=== PATIENT | male | born 2000 | race Caucasian/White ===

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

== ENCOUNTER 2022-02-05 10:48 | Outpatient (CLI) | payer MEDICAID | END 2022-02-05 10:49 | disposition critical access hospital (66) | LOC: EMS 10:48 | DX: R56.9 Unspecified convulsions (principal); R45.6 Violent behavior; Z78.1 Physical restraint status | CPT/HCPCS: A0425; A0427; A0999 ==

== ENCOUNTER 2022-05-30 13:03 | Emergency (ER) | payer MEDICAID ==
--- NOTE | 2022-05-30 13:49 | ED Physician Documentation ---
PD HPI URI - Stated complaint Stated Complaint: CHILLS,CHEST TIGHT - Chief complaint Chief Complaint: General - History obtained from History obtained from: Patient, Friend - History of Present Illness Timing - onset: How many hours ago (onset this morning of aches, chills, nausea, and shakiness. vomiting several times. History of seizures and did vomiting after taking morning meds. friend talked him into coming to ER.), Today Timing duration: Hours Timing details: Abrupt onset, Still present Associated symptoms: Fever (subjective.), Chills, Dyspnea, NVD. No: Nasal congestion, Dry cough Contributing factors: No: Sick contact, Immunocompromised Improves by: Other (felt worse with attempted pO intake of food or fluids.) Similar symptoms before: No diagnosis (has had flu like illness a few times this winter.) Recently seen: Not recently seen Review of Systems Constitutional: reports: Fever, Chills, Myalgias Nose: denies: Rhinorrhea / runny nose, Congestion Throat: denies: Sore throat Respiratory: denies: Cough GI: reports: Nausea, Vomiting. denies: Abdominal Pain, Diarrhea Neurologic: reports: Altered mental status (sleepy and tired, per friend.) PD PAST MEDICAL HISTORY - Past Medical History Cardiovascular: None Respiratory: None Neuro: None, Seizure disorder, Other Endocrine/Autoimmune: None GI: None : None HEENT: None Psych: None Musculoskeletal: None - Past Surgical History Past Surgical History: No - Present Medications Home Medications: Ambulatory Orders Medication Instructions Recorded Confirmed Levetiracetam [Keppra] 500 mg PO BID #60 tablet 08/23/21 05/30/22 Famotidine [Pepcid] 20 mg PO DAILY #20 tablet 05/30/22 LORazepam [Ativan] 1 mg PO BID PRN #12 tablet 05/30/22 Ondansetron Odt [Zofran] 4 mg TL Q6H PRN #10 tablet 05/30/22 - Allergies Allergies/Adverse Reactions: Allergies Allergy/AdvReac Type Severity Reaction Status Date / Time No Known Drug Allergies Allergy Verified 05/30/22 13:34 - Social History Does the pt smoke?: No Smoking Status: Never smoker Does the pt drink ETOH?: No Does the pt have substance abuse?: No - Immunizations Immunizations are current?: Yes - POLST Patient has POLST: No PD ED PE NORMAL - Vitals Vital signs reviewed: Yes - General General: Alert and oriented X 3, Well developed/nourished, Other (somewhat sleepy but answers questions okay. lying down face down on cart. ) - Neck Neck: Supple, no meningeal sign, No adenopathy - Cardiac Cardiac: RRR, No murmur - Respiratory Respiratory: Clear bilaterally - Abdomen Abdomen: Soft, Other (general mild tnederness and guarding but no percussion tenderness. ) - Derm Derm: Warm and dry. No: Normal color (somewhat pale) - Extremities Extremities: Normal ROM s pain - Neuro Neuro: Alert and oriented X 3, No motor deficit, Normal speech Results - Vitals Vitals: Vital Signs - 24 hr 05/30/22 05/30/22 13:32 15:59 Temperature 36.8 C Heart Rate 55 L 50 L Respiratory 18 16 Rate Blood Pressure 136/91 H 155/99 H O2 Saturation 99 100 Oxygen O2 Source Room air - Labs Labs: Laboratory Tests 05/30/22 05/30/22 05/30/22 14:26 14:26 14:40 WBC 10.7 RBC 5.40 Hgb 15.2 Hct 43.7 MCV 80.9 MCH 28.1 MCHC 34.8 RDW 12.3 Plt Count 203 MPV 11.5 H Neut # (Auto) 9.1 H Lymph # (Auto) 0.9 L [place] # (Auto) 0.6 Eos # (Auto) 0.0 Baso # (Auto) 0.0 Absolute Nucleated RBC 0.00 Nucleated RBC % 0.0 Sodium 141 Potassium 3.7 Chloride 107 Carbon Dioxide 21 Anion Gap 13.0 BUN 19 Creatinine 0.7 Estimated GFR (MDRD) 144 Glucose 122 H Calcium 10.2 Magnesium 2.0 Total Bilirubin 1.0 AST 15 ALT 16 Alkaline Phosphatase 67 Total Protein 8.0 Albumin 4.9 Globulin 3.1 Albumin/Globulin Ratio 1.6 Lipase 23 Nasal Adenovirus (PCR) NOT DETECTED Nasal B. parapertussis DNA (PCR) NOT DETECTED Nasal Coronavir 229E PCR NOT DETECTED Nasal Coronavir HKU1 PCR NOT DETECTED Nasal Coronavir NL63 PCR NOT DETECTED Nasal Coronavir OC43 PCR NOT DETECTED Nasal Enterovir/Rhinovir PCR NOT DETECTED Nasal Influenza B PCR NOT DETECTED Nasal Influenza A PCR NOT DETECTED Nasal Parainfluen 1 PCR NOT DETECTED Nasal Parainfluen 2 PCR NOT DETECTED Nasal Parainfluen 3 PCR NOT DETECTED Nasal Parainfluen 4 PCR NOT DETECTED Nasal RSV (PCR) NOT DETECTED Nasal B.pertussis DNA PCR NOT DETECTED Nasal C.pneumoniae (PCR) NOT DETECTED Immanuel Human Metapneumo PCR NOT DETECTED Nasal M.pneumoniae (PCR) NOT DETECTED Nasal SARS-CoV-2 (PCR) NOT DETECTED PD Medical Decision Making - ED course Complexity details: re-evaluated patient (the patient changed his mind about IV/meds and did not want labs done. He is seeming more anxious but still doherent. He wants to go home. Consideration of substance use as his symptoms would also fit for meth use/withdrawal and more fit his affect. ), considered differential (his friend is with him. gave info of some of the patient symptoms this morning. The patient sounds like a viral ge. No focal abd tenderness. can give labs/iv/fluids/ meds. ), d/w patient Departure - Departure Disposition: 01 Home, Self Care Clinical Impression: Nausea and vomiting, Anxiety, Seizure disorder Condition: Stable Record reviewed to determine appropriate education?: Yes Instructions: ED Nausea Vomiting Prescriptions: LORazepam [Ativan] 1 mg PO BID PRN #12 tablet PRN Reason: Anxiety Famotidine [Pepcid] 20 mg PO DAILY #20 tablet Ondansetron Odt [Zofran] 4 mg TL Q6H PRN #10 tablet PRN Reason: Nausea / Vomiting Comments: I understand that you would rather not have the IV fluids and medications. We will try to help with your nausea using oral dissolving tablet of ondansetron/Zyprexa. Small frequent fluids and bland food initially and progress as tolerated. Use Ativan/lorazepam 1 mg twice daily if needed for anxiety in the short-term. Continue your other usual medications. With the vomiting you have had, no doubt your stomach will be irritated and so I would suggest some acid reducing medicine such as famotidine twice daily for a few days and then once daily for a couple weeks after that. Add antacid such as Maalox or Mylanta if needed. Tylenol if needed for pains. Return to the ER if persistent or recurrent symptoms or other problems. I sent your prescriptions to [facility] pharmacy in [place]. Discharge Date/Time: 05/30/22 15:59
[2022-05-30] MEDS ORDERED: KETOROLAC 15 MG/ML VIAL IVP STA (14:16)
[2022-05-30] MEDS ORDERED: ONDANSETRON 4 MG/2 ML VIAL IVP STA (14:16)
[2022-05-30] MEDS ORDERED: SODIUM CHLORIDE 0.9% 1,000 ML IV STA (14:16)
[2022-05-30] MEDS ORDERED: MAG HYDROX/AL HYDROX/SIMETH 30 ML UDC PO STA (14:18)
[2022-05-30] MEDS ORDERED: FAMOTIDINE 20 MG/2 ML VIAL IVP STA (14:18)
[2022-05-30 14:34] LABS: BASOPHILS % (AUTO) 0.3 %; EOSINOPHILS % (AUTO) 0.1 %; HCT - HEMATOCRIT 43.7 % (42.0-52.0); HGB - HEMOGLOBIN 15.2 g/dL (14.0-18.0); LYMPHOCYTES # (AUTO) 0.9 10^3/uL (1.5-3.5); LYMPHOCYTES % (AUTO) 8.7 %; MEAN CORPUSCULAR HEMOGLOBIN 28.1 pg (27.0-31.0); MEAN CORPUSCULAR HGB CONC 34.8 g/dL (32.0-36.0); MEAN CORPUSCULAR VOLUME 80.9 fL (80.0-94.0); MEAN PLATELET VOLUME 11.5 fL (7.4-11.4); MONOCYTES # (AUTO) 0.6 10^3/uL (0.0-1.0); MONOCYTES % (AUTO) 5.6 %; NEUTROPHILS # (AUTO) 9.1 10^3/uL (1.5-6.6); NEUTROPHILS % (AUTO) 84.7 %; PLT - PLATELET COUNT 203 10^3/uL (130-450); RED CELL DISTRIBUTION WIDTH 12.3 % (12.0-15.0); WHITE BLOOD COUNT 10.7 x10^3/uL (4.8-10.8)
[2022-05-30 14:44] LABS: ALBUMIN 4.9 g/dL (3.2-5.5); ALBUMIN/GLOBULIN RATIO 1.6 (1.0-2.2); CALCIUM 10.2 mg/dL (8.5-10.3); CREATININE 0.7 mg/dL (0.6-1.2); POTASSIUM 3.7 mmol/L (3.5-5.0)
[2022-05-30] MEDS ORDERED: ONDANSETRON ODT 4 MG TABLET TL STA (14:48)
[2022-05-30] MEDS ORDERED: FAMOTIDINE 20 MG TABLET PO STA (14:48)
[2022-05-30] MEDS ORDERED: LORazepam 1 MG TABLET PO STA (14:48)
[2022-05-30 15:59] VITALS: BP 155/99
[2022-05-30 16:36] LABS: B. PARAPERTUSSIS- RESP PCR PAN NOT DETECTED; B. PERTUSSIS- RESP PCR PANEL NOT DETECTED; C. PNEUMONIAE- RESP PCR PANEL NOT DETECTED; CORONAVIRUS 229E-RESP PCR NOT DETECTED; CORONAVIRUS HKU1-RESP PCR NOT DETECTED; CORONAVIRUS NL63-RESP PCR NOT DETECTED; CORONAVIRUS OC43-RESP PCR NOT DETECTED; HUMAN METAPNEUMOVIRUS NOT DETECTED; INFLUENZA A- RESP PCR PANEL NOT DETECTED; INFLUENZA B - RESP PCR PANEL NOT DETECTED; M. PNEUMONIAE- RESP PCR PANEL NOT DETECTED; PARAINFLUENZA VIRUS 1 NOT DETECTED; PARAINFLUENZA VIRUS 2 NOT DETECTED; PARAINFLUENZA VIRUS 3 NOT DETECTED; PARAINFLUENZA VIRUS 4 NOT DETECTED; RHINOVIRUS/ENTEROVIRUS NOT DETECTED; RSV- RESP PCR PANEL NOT DETECTED; SARS-CoV-2 -RESP PCR PANEL NOT DETECTED
== END 2022-05-30 15:59 | disposition home or self-care (01) ==
LOC: ED 13:03
DX: R11.2 Nausea with vomiting, unspecified (principal); F41.9 Anxiety disorder, unspecified; G40.909 Epilepsy, unspecified, not intractable, without status epilepticus; Z20.822 Contact with and (suspected) exposure to COVID-19
CPT/HCPCS: 36415; 80053; 83690; 83735; 85025; 87633; 99283; 99284; A9270; J8499; Q0162

== ENCOUNTER 2022-06-03 14:19 | Emergency (ER) | payer MEDICAID ==
[2022-06-03 14:38] VITALS: BP 129/79
[2022-06-03] MEDS ORDERED: LIDOCAINE 1%-EPI 1:100000 10 ML MDV SUBQ STA ×2 (15:33→15:38)
[2022-06-03] MEDS ORDERED: LIDOCAINE 1%-EPI 1:100000 20 ML MDV SUBQ STA (15:48)
[2022-06-03] MEDS ORDERED: BACITRACIN ZINC OINT 1 PACKET TOP STA (16:24)
--- NOTE | 2022-06-12 00:30 | ED Physician Documentation ---
History of Present Illness - Stated complaint Stated Complaint: LT HAND LAC - Chief complaint Chief Complaint: Laceration - Additonal information Additional information: Patient is a 22-year-old male present to the emergency department with left hand laceration. Cut hand while using screwdriver prior to arrival [id number]. Reports physicians up-to-date. Rinsed injury and applied pressure prior to arrival. Denies any blood thinning in medication. Review of Systems Constitutional: denies: Fever Eyes: denies: Loss of vision Ears: denies: Loss of hearing Nose: denies: Rhinorrhea / runny nose Throat: denies: Dental pain / toothache Cardiac: denies: Chest pain / pressure Respiratory: denies: Dyspnea GI: denies: Abdominal Pain : denies: Dysuria PD PAST MEDICAL HISTORY - Past Medical History Cardiovascular: None Respiratory: None Neuro: None, Seizure disorder, Other Endocrine/Autoimmune: None GI: None : None HEENT: None Psych: None Musculoskeletal: None - Past Surgical History Past Surgical History: No - Present Medications Home Medications: Ambulatory Orders Medication Instructions Recorded Confirmed Levetiracetam [Keppra] 500 mg PO BID #60 tablet 08/23/21 05/30/22 Famotidine [Pepcid] 20 mg PO DAILY #20 tablet 05/30/22 LORazepam [Ativan] 1 mg PO BID PRN #12 tablet 05/30/22 Ondansetron Odt [Zofran] 4 mg TL Q6H PRN #10 tablet 05/30/22 - Allergies Allergies/Adverse Reactions: Allergies Allergy/AdvReac Type Severity Reaction Status Date / Time No Known Drug Allergies Allergy Verified 06/03/22 14:38 - Social History Does the pt smoke?: No Smoking Status: Never smoker Does the pt drink ETOH?: No Does the pt have substance abuse?: No - Immunizations Immunizations are current?: Yes - POLST Patient has POLST: No PD ED PE NORMAL - General General: Alert and oriented X 3 - HEENT HEENT: Atraumatic - Respiratory Respiratory: No respiratory distress - Extremities Extremities: No deformity, Other (3 cm laceration at base of left thumb. Full and normal range of motion. Normal two-point discrimination. Normal capillary refill.) Results - Vitals Vitals: Oxygen O2 Source Room air Procedures - Laceration (location) Hand left Length in cm: 3 Wound type: Linear Neurovascular status: Sensory intact Tendon involvement: Tendon intact Anesthesia: Lidocaine 1% with epi Wound preparation: Chlorhexadine Skin layer closure: Nylon, Sutures - enter # (4) Other: Patient tolerated well PD Medical Decision Making - ED course Complexity details: d/w patient ED course: Patient 22-year-old male presenting with left hand laceration. No indications of neurovascular or tendon compromise on exam. He reported his tetanus being up-to-date and within the last 5 years. Wound was cleaned and repaired as outlined in procedure note above. He was given wound care and follow-up instructions prior to discharge. Final diagnosis: Acute left hand laceration. Departure - Departure Disposition: 01 Home, Self Care Clinical Impression: Laceration Instructions: ED Laceration Scalp Stitch Or Stap Comments: Thank you for allowing [facility] care [facility]. Today in the emergency department you received 6 stitches to the laceration in your left hand. These will need to be removed in 7 to 10 days. I recommend daily dressing changes and twice daily application of a topical antibiotic ointment. If it anytime you develop signs or symptoms concerning for infection please return to the emergency department. Discharge Date/Time: 06/03/22 16:41
== END 2022-06-03 16:41 | disposition home or self-care (01) ==
LOC: ED 14:19
DX: S61.012A Laceration without foreign body of left thumb without damage to nail, initial encounter (principal); W27.0XXA Contact with workbench tool, initial encounter
CPT/HCPCS: 12002; 99281; A9270

== ENCOUNTER 2022-07-10 04:07 | Outpatient (CLI) | payer MEDICAID | END 2022-07-10 04:08 | disposition critical access hospital (66) | LOC: EMS 04:07 | DX: R56.9 Unspecified convulsions (principal); S01.81XA Laceration without foreign body of other part of head, initial encounter; W18.39XA Other fall on same level, initial encounter; Y92.512 Supermarket, store or market as the place of occurrence of the external cause | CPT/HCPCS: A0425; A0429; A0999 ==

== ENCOUNTER 2022-07-10 04:30 | Emergency (ER) | payer MEDICAID ==
--- NOTE | 2022-07-10 04:28 | ED Physician Documentation ---
PD HPI HEAD INJURY - Stated complaint Stated Complaint: SZ, HEAD LAC - History obtained from History obtained from: Patient, EMS - Additional information Additional information: HPI is from patient as well as from EMS (patient is postictal and thus can only partially contribute to the HPI). Patient was at work prior to arrival when he had a seizure with loss of consciousness and fell to ground, striking his head on the floor which caused a posterior scalp laceration. EMS says that coworkers that were onsite reported the seizure lasted approximately 2 minutes. EMS arrived to find patient awake but postictal which manifest as confusion and agitation. His mental status has improved on route to the emergency department but he remains terse and dismissive on arrival and initial HPI (for example, he insists he does not have scalp laceration and when I tell him that I and clearly visualizing a deep scalp laceration, he then says he does not want it repaired because "it is not bleeding"; with a gloved finger, I dabbed at the wound, and showed him the blood that was on the glove, and then he reluctantly allows me to repair the la ceration). Fingerstick blood sugar by EMS is 149. EMS noted a blood pressure of 137/71 and pulse rate of 102. Patient has a known seizure disorder for which she takes Keppra. Review of Systems Skin: reports: Laceration (s) Musculoskeletal: reports: Reviewed and negative Neurologic: reports: Seizure. denies: Generalized weakness, Headache PD PAST MEDICAL HISTORY - Past Medical History Past Medical History: Yes Neuro: Seizure disorder - Present Medications Home Medications: Ambulatory Orders Medication Instructions Recorded Confirmed Levetiracetam [Keppra] 500 mg PO BID #60 tablet 08/23/21 07/10/22 Famotidine [Pepcid] 20 mg PO DAILY #20 tablet 05/30/22 07/10/22 LORazepam [Ativan] 1 mg PO BID PRN #12 tablet 05/30/22 07/10/22 Ondansetron Odt [Zofran] 4 mg TL Q6H PRN #10 tablet 05/30/22 07/10/22 - Allergies Allergies/Adverse Reactions: Allergies Allergy/AdvReac Type Severity Reaction Status Date / Time No Known Drug Allergies Allergy Verified 07/10/22 04:44 PD ED PE NORMAL - Vitals Vital signs reviewed: Yes - General General: Alert and oriented X 3, No acute distress, Well developed/nourished - HEENT HEENT: PERRL, EOMI, Other (no tongue bite/echmosis/abrasion) - Neck Neck: No bony TTP - Cardiac Cardiac: RRR, No murmur - Respiratory Respiratory: No respiratory distress, Clear bilaterally PD ED PE EXPANDED - HEENT HEENT: Other (no bony step-off nor bony tenderness) HEENT Visual: 1 - laceration (3 cm length with visualized subcutaneous adipose tissue) Results - Vitals Vitals: Vital Signs - 24 hr 07/10/22 07/10/22 07/10/22 04:32 04:57 05:15 Temperature 35.7 C L Heart Rate 94 79 96 Respiratory 18 12 17 Rate Blood Pressure 135/79 H 135/79 H 126/75 O2 Saturation 96 98 99 Oxygen O2 Source Room air Procedures - Laceration (location) Scalp Posterior Length in cm: 3 Wound type: Linear, Into subcut fat, Clean Neurovascular status: Sensory intact, Motor intact, Vascular intact Anesthesia: Lidocaine 1% Wound preparation: Hibiclens, Irrigated copiously NS Skin layer closure: [place] Other: Patient tolerated well, No complications, Neurovascular intact, Tetanus UTD PD Medical Decision Making - ED course Complexity details: reviewed old records, considered differential, d/w patient ED course: Early in ED stay, patient is terse, dismissive. He initially wants to leave without being evaluated, let alone having the scalp laceration repaired. His spouse then arrives and he seems to improve in mentation and willingness to coop erate, and steadily improved in these aspects very rapidly thereafter. Based on this, and reviewing some of his previous ED visits after seizure, it seems very likely that his indifference he exhibited when he first arrived is due to postictal state rather than national account representative of his underlying attitude. As another example, when patient first arrived, he told me he stopped taking his Keppra weeks ago; late in his ED stay, although overall he was here less than an hour, he tells me he only missed last night's dose. He is able to tell me exactly what his dosing and scheduling are. Since he missed his dose last night, which is 1000 mg (which she takes twice daily), he is given a dose of the 1000 mg Keppra prior to discharge. Scalp laceration was repaired as noted above. He is instructed to follow-up with his primary care provider, or else a walk-in clinic, urgent care center, or, if need be, return to emergency department in 7 to 10 days for staple removal. Patient is polite, cooperative, and even apologetic prior to discharge. Departure - Departure Disposition: 01 Home, Self Care Clinical Impression: Seizure disorder, Scalp laceration, Seizure Condition: Good Instructions: ED Laceration Scalp Stitch Or Stap Comments: You apparently had a seizure this morning while at work; this is per the medic report, with their information gathered from coworkers who were on scene. Furthermore, it appears you have struck your head on the floor, as you have a deep laceration of the scalp. I have repaired this using chayo, and you need to follow-up for removal of the chayo in 7 to 10 days. You can make an appoi ntment with your primary care provider to have this done; other options include a walk-in clinic, urgent care, or, if need be, you can return to the emergency department. You were given 1000 mg of Keppra orally in the emergency department prior to discharge. You can consider this your morning dose of Keppra, and, thus, you would take your next dose of Keppra as scheduled this evening. Obviously, it is very important to not miss any doses of the seizure medication. Discharge Date/Time: 07/10/22 05:25
[2022-07-10] MEDS ORDERED: lidocaine 1% 20 ML MDV SUBQ ONE (04:44)
[2022-07-10] MEDS ORDERED: BACITRACIN ZINC OINT 1 PACKET TOP STA (05:05)
[2022-07-10] MEDS ORDERED: levETIRAcetam 250 MG TABLET PO STA (05:06)
[2022-07-10 05:16] VITALS: BP 126/75
== END 2022-07-10 05:25 | disposition home or self-care (01) ==
LOC: EDUNIT# → ED 04:30
DX: G40.909 Epilepsy, unspecified, not intractable, without status epilepticus (principal); S01.01XA Laceration without foreign body of scalp, initial encounter; W19.XXXA Unspecified fall, initial encounter
CPT/HCPCS: 12002; 99283; 99284; A9270

== ENCOUNTER 2022-07-17 13:53 | Outpatient (CLI) | payer MEDICAID ==
--- NOTE | 2022-07-17 16:52 | XRAY Report ---
PROCEDURE: Thoracic Spine 3 View INDICATIONS: CONTUSION OF LOWER AND MIDDLE BACK TECHNIQUE: 2 views of the thoracic spine were acquired. COMPARISON: None. FINDINGS: Bones: No fractures or dislocations. No suspicious bony lesions. 12 pairs of ribs are noted, and a ppear intact where visualized. Soft tissues: No paravertebral stripe thickening. IMPRESSION: This is a normal study. Reviewed by: Kingsley Abraham MD on 07/17/2022 3:50 PM AKDT Approved by: Kingsley Abraham MD on 07/17/2022 3:50 PM AKDT Station ID: [id number]
--- NOTE | 2022-07-17 18:08 | XRAY Report ---
PROCEDURE: Lumbar Spine 2 View INDICATIONS: CONTUSION OF LOWER AND MIDDLE BACK TECHNIQUE: 2 views of the lumbar spine were acquired. COMPARISON: None. FINDINGS: Bones: 5 [id number] vertebrae are present. There is normal bony alignment. No vertebral body compression fractures. No suspicious bony lesions. Soft tissues: Overlying bowel gas pattern is normal. No suspicious soft tissue calcifications. IMPRESSION: Normal lumbar spine radiographs Reviewed by: Kingsley Abraham MD on 07/17/2022 5:07 PM DENTON Approved by: Kingsley Abraham MD on 07/17/2022 5:07 PM AKMERLIN Station ID: [id number]
== END 2022-07-17 13:54 | disposition home or self-care (01) ==
LOC: DI 13:53
PROVIDERS: ATTEND Registered Nurse
DX: S30.0XXA Contusion of lower back and pelvis, initial encounter (principal); S20.224A Contusion of middle back wall of thorax, initial encounter; S01.01XA Laceration without foreign body of scalp, initial encounter; S06.0X1A Concussion with loss of consciousness of 30 minutes or less, initial encounter

== ENCOUNTER 2022-09-25 12:21 | Outpatient (CLI) | payer MEDICAID | END 2022-09-25 23:59 | disposition left against medical advice (07) | LOC: EMS 12:21 | DX: R56.9 Unspecified convulsions (principal) ==

== ENCOUNTER 2022-09-25 15:40 | Outpatient (CLI) | payer MEDICAID | END 2022-09-25 23:59 | disposition critical access hospital (66) | LOC: EMS 15:40 | DX: R56.9 Unspecified convulsions (principal); R46.89 Other symptoms and signs involving appearance and behavior; R51.9 Headache, unspecified | CPT/HCPCS: A0425; A0429; A0999 ==

== ENCOUNTER 2022-09-25 15:48 | Emergency (ER) | payer MEDICAID ==
[2022-09-25] MEDS ORDERED: SODIUM CHLORIDE 0.9% 1,000 ML IV STA (16:02)
[2022-09-25 16:06] LABS: BASOPHILS % (AUTO) 0.3 %; EOSINOPHILS % (AUTO) 0.2 %; HCT - HEMATOCRIT 43.4 % (42.0-52.0); HGB - HEMOGLOBIN 14.9 g/dL (14.0-18.0); LYMPHOCYTES % (AUTO) 8.3 %; MEAN CORPUSCULAR HEMOGLOBIN 27.7 pg (27.0-31.0); MEAN CORPUSCULAR HGB CONC 34.3 g/dL (32.0-36.0); MEAN CORPUSCULAR VOLUME 80.7 fL (80.0-94.0); MEAN PLATELET VOLUME 11.3 fL (7.4-11.4); MONOCYTES # (AUTO) 0.4 10^3/uL (0.0-1.0); MONOCYTES % (AUTO) 3.5 %; NEUTROPHILS # (AUTO) 10.5 10^3/uL (1.5-6.6); NEUTROPHILS % (AUTO) 86.8 %; PLT - PLATELET COUNT 195 10^3/uL (130-450); RED BLOOD COUNT 5.38 10^6/uL (4.70-6.10); RED CELL DISTRIBUTION WIDTH 12.6 % (12.0-15.0); WHITE BLOOD COUNT 12.2 x10^3/uL (4.8-10.8)
[2022-09-25 16:18] LABS: ALBUMIN 4.4 g/dL (3.2-5.5); ALBUMIN/GLOBULIN RATIO 1.3 (1.0-2.2); ALKALINE PHOSPHATASE 69 IU/L (42-121); ALT ALANINE AMINOTRANSFERASE 16 IU/L (10-60); AST ASPARTATE AMINOTRANSFERASE 16 IU/L (10-42); BILIRUBIN,TOTAL 0.7 mg/dL (0.2-1.0); BUN - BLOOD UREA NITROGEN 16 mg/dL (6-20); CALCIUM 9.3 mg/dL (8.5-10.3); CARBON DIOXIDE - CO2 25 mmol/L (21-32); CHLORIDE 104 mmol/L (101-111); CREATININE 0.6 mg/dL (0.6-1.2); ETOH - ETHANOL < 5.0 mg/dL; GFR - MDRD 172 (>89); GLUCOSE 106 mg/dL (70-100); LIPASE 21 U/L (22-51); POTASSIUM 3.9 mmol/L (3.5-5.0); SODIUM 137 mmol/L (135-145); TOTAL PROTEIN 7.7 g/dL (6.7-8.2)
[2022-09-25 16:22] LABS: BILIRUBIN,URINE NEGATIVE (NEGATIVE); GLUCOSE, URINE (UA) NEGATIVE (NEGATIVE); KETONES,URINE (UA) NEGATIVE (NEGATIVE); LEUKOCYTE ESTERASE, URINE NEGATIVE (NEGATIVE); NITRITE,URINE NEGATIVE (NEGATIVE); OCCULT BLOOD,URINE NEGATIVE (NEGATIVE); PH,URINE 6.5 PH (5.0-7.5); PROTEIN,URINE NEGATIVE (NEGATIVE); UROBILINOGEN,URINE 0.2 (NORMAL) E.U./dL (NORMAL)
[2022-09-25 16:23] LABS: CLARITY,URINE CLEAR (CLEAR)
[2022-09-25 16:29] LABS: MUDS CUTOFF CONCENTRATIONS CUTOFF CONC BELOW:
[2022-09-25 16:40] LABS: AMPHETAMINE SCREEN,URINE NEGATIVE (NEGATIVE); BARBITURATE SCREEN,UR NEGATIVE (NEGATIVE); BENZODIAZEPINES SCREEN, URINE NEGATIVE (NEGATIVE); COCAINE SCREEN URINE NEGATIVE (NEGATIVE); METHADONE SCREEN, URINE NEGATIVE (NEGATIVE); METHAMPHETAMINES SCREEN, URINE NEGATIVE (NEGATIVE); OPIATE SCREEN, URINE NEGATIVE (NEGATIVE); OXYCODONE SCREEN, URINE NEGATIVE (NEGATIVE); PROPOXYPHENE SCREEN, URINE NEGATIVE (NEGATIVE); THC CANNABINOID SCREEN, URINE POSITIVE (NEGATIVE); TRICYCLIC ANTIDEPRESSANT,URINE NEGATIVE (NEGATIVE)
--- NOTE | 2022-09-25 16:40 | ED Physician Documentation ---
PD HPI SEIZURE - Stated complaint Stated Complaint: SZ - Chief complaint Chief Complaint: Neuro - History obtained from History obtained from: Patient, Family (Girlfriend) - Additional information Additional information: Patient is a 22-year-old male with a history of neurofibromatosis type I and seizure disorder presenting for evaluation of feeling preseizure auras today twice. Per the patient's girlfriend he had an episode this morning around 11:00 where he was staring off, salivating, speaking somewhat aggressively which has occurred previously.She called 9 1 and he was evaluated but refused transport at that time. He then had another episode this afternoon That was similar and thus girlfriend called 911 again. Another episode led to a full seizure. Patient states that he has been compliant with his Keppra dosing without a milligrams twice a day since June. Girlfriend also states that she make sure that he takes his medication. He did have some alcohol on 23 September consisting of a couple of Jell-O shots and 2 beers. Patient also regularly uses cannabis. He denies recent illness. Review of Systems Constitutional: denies: Fever Cardiac: denies: Chest pain / pressure Respiratory: denies: Dyspnea GI: denies: Abdominal Pain Neurologic: denies: Head injury PD PAST MEDICAL HISTORY - Past Medical History Cardiovascular: None Respiratory: None Neuro: Seizure disorder Endocrine/Autoimmune: None GI: None : None HEENT: None Psych: None Musculoskeletal: None - Past Surgical History Past Surgical History: No - Present Medications Home Medications: Ambulatory Orders Medication Instructions Recorded Confirmed Levetiracetam [Keppra] 500 mg PO BID #60 tablet 08/23/21 07/10/22 Famotidine [Pepcid] 20 mg PO DAILY #20 tablet 05/30/22 07/10/22 LORazepam [Ativan] 1 mg PO BID PRN #12 tablet 05/30/22 07/10/22 Ondansetron Odt [Zofran] 4 mg TL Q6H PRN #10 tablet 05/30/22 07/10/22 Levetiracetam [Keppra] 1,250 mg PO BID 30 Days #150 tablet 09/25/22 - Allergies Allergies/Adverse Reactions: Allergies Allergy/AdvReac Type Severity Reaction Status Date / Time No Known Drug Allergies Allergy Verified 07/10/22 04:44 - Social History Does the pt smoke?: No Smoking Status: Never smoker Does the pt drink ETOH?: No Does the pt have substance abuse?: No - Immunizations Immunizations are current?: Yes - POLST Patient has POLST: No PD ED PE NORMAL - General General: Alert and oriented X 3, No acute distress, Well developed/nourished - HEENT HEENT: Atraumatic, PERRL, EOMI, Moist mucous membranes, Pharynx benign - Neck Neck: Supple, no meningeal sign - Cardiac Cardiac: RRR, No murmur - Respiratory Respiratory: No respiratory distress, Clear bilaterally - Abdomen Abdomen: Normal bowel sounds, Soft, Non tender, Non distended - Derm Derm: Warm and dry - Neuro Neuro: Alert and oriented X 3, button sawyer 2-12 intact, No motor deficit, No sensory deficit, Normal speech Results - Vitals Vitals: Vital Signs - 24 hr 09/25/22 09/25/22 09/25/22 15:47 16:45 17:53 Temperature 37.4 C 37.4 C Heart Rate 85 73 93 Respiratory 18 10 L 24 Rate Blood Pressure 133/81 H 118/74 128/81 H O2 Saturation 99 96 100 Oxygen O2 Source Room air - EKG (time done) 1600 EKG releavant findings:: EKG personally interpreted by author of this note. Relevant findings are: Rate 76, normal sinus rhythm, no STEMI, QTc 390 Rate: Rate (enter#) (76) Rhythm: NSR Intervals: No: Prolonged QT Ischemia: No: ST elevation c/w ischemia - Labs Labs: Laboratory Tests 09/25/22 09/25/22 09/25/22 15:59 15:59 16:10 WBC 12.2 H RBC 5.38 Hgb 14.9 Hct 43.4 MCV 80.7 MCH 27.7 MCHC 34.3 RDW 12.6 Plt Count 195 MPV 11.3 Neut # (Auto) 10.5 H Lymph # (Auto) 1.0 L [place] # (Auto) 0.4 Eos # (Auto) 0.0 Baso # (Auto) 0.0 Absolute Nucleated RBC 0.00 Nucleated RBC % 0.0 Sodium 137 Potassium 3.9 Chloride 104 Carbon Dioxide 25 Anion Gap 8.0 BUN 16 Creatinine 0.6 Estimated GFR (MDRD) 172 Glucose 106 H Calcium 9.3 Total Bilirubin 0.7 AST 16 ALT 16 Alkaline Phosphatase 69 Total Protein 7.7 Albumin 4.4 Globulin 3.3 Albumin/Globulin Ratio 1.3 Lipase 21 L Urine Color YELLOW Urine Clarity CLEAR Urine pH 6.5 Ur Specific [place] 1.025 Urine Protein NEGATIVE Urine Glucose (UA) NEGATIVE Urine Ketones NEGATIVE Urine Occult Blood NEGATIVE Urine Nitrite NEGATIVE Urine Bilirubin NEGATIVE Urine Urobilinogen 0.2 (NORMAL) Ur Leukocyte Esterase NEGATIVE Ur Microscopic Review NOT INDICATED Urine Culture Comments NOT INDICATED Urine Opiates Screen Ur Oxycodone Screen Urine Methadone Screen Ur Propoxyphene Screen Ur Barbiturates Screen Ur Tricyclics Screen Ur Phencyclidine Scrn Ur Amphetamine Screen U Methamphetamines Scrn U Benzodiazepines Scrn Urine Cocaine Screen U Cannabinoids Screen Ethyl Alcohol < 5.0 09/25/22 16:10 WBC RBC Hgb Hct MCV MCH MCHC RDW Plt Count MPV Neut # (Auto) Lymph # (Auto) [place] # (Auto) Eos # (Auto) Baso # (Auto) Absolute Nucleated RBC Nucleated RBC % Sodium Potassium Chloride Carbon Dioxide Anion Gap BUN Creatinine Estimated GFR (MDRD) Glucose Calcium Total Bilirubin AST ALT Alkaline Phosphatase Total Protein Albumin Globulin Albumin/Globulin Ratio Lipase Urine Color Urine Clarity Urine pH Ur Specific [place] Urine Protein Urine Glucose (UA) Urine Ketones Urine Occult Blood Urine Nitrite Urine Bilirubin Urine Urobilinogen Ur Leukocyte Esterase Ur Microscopic Review Urine Culture Comments Urine Opiates Screen NEGATIVE Ur Oxycodone Screen NEGATIVE Urine Methadone Screen NEGATIVE Ur Propoxyphene Screen NEGATIVE Ur Barbiturates Screen NEGATIVE Ur Tricyclics Screen NEGATIVE Ur Phencyclidine Scrn NEGATIVE Ur Amphetamine Screen NEGATIVE U Methamphetamines Scrn NEGATIVE U Benzodiazepines Scrn NEGATIVE Urine Cocaine Screen NEGATIVE U Cannabinoids Screen POSITIVE H Ethyl Alcohol PD Medical Decision Making - ED course Complexity details: reviewed results, re-evaluated patient, d/w patient, d/w family ED course: 1640 - D/W Carla (Application Designer TOWER SUPERVISOR, Neuro at [facility]) - She recommends that we increase the patient's Keppra dosing to 1250 twice daily. She also recommends that we give him an additional 1000 mg orally right now.She says that they have been trying to reach the patient but his number has not been working. I did give her the phone number for his girlfriend which the patient gave me permission to do as his phone is currently not in service. She also gave me their office number so that the patient has a way of reaching out to them. Patient is a 22-year-old with a known seizure disorder presenting for evaluation of feeling his auras prior to a usual seizure episode. However he has not had a tonic-clonic seizure today like he usually does after these auras. On arrival he is cooperative with a normal neuro exam. No head injury. Vitals are stable. CBC, chemistries, urine analysis were reviewed without Significant findings. Patient does report using cannabis which shows up on his UDS but otherwise is negative.I did consult with [facility] neurology office.Plan to increase his Keppra dose. Initially we are planning on giving his Keppra dose as a p.o. but he started feeling nauseous and feeling like another seizure may come on so we gave it to him IV. Patient again did not have any seizure episodes witnessed here. He tolerated the Keppra dose and remained at his baseline.His girlfriend is with him. I did review plan of care for increased Keppra and need for close follow-up with both of them. He is counseled on concerning symptoms to return for. Departure - Departure Disposition: 01 Home, Self Care Clinical Impression: Seizure disorder Condition: Stable Instructions: ED Seizure Recurrent Follow-Up: Carla Oropeza ARNP [Physician No Access] - Within 3 Days () Prescriptions: Levetiracetam [Keppra] 1,250 mg PO BID 30 Days #150 tablet Comments: We have evaluated you for symptoms related to your seizures. I have spoken to the neurology clinic at [facility] and They are recommending that we increase your Keppra dosing to 1250 mg twice a day. This will be 2-1/2 tablets in the morning and 2-1/2 tablets in the evening. Please make sure you take your medications as prescribed. I am sending a new prescription for 30-day supply to [facility] in [place]. You also need to have close follow-up with the neurology clinic office. Their phone number is [phone] or operate machinery until you have been cleared by your neurologist. Discharge Date/Time: 09/25/22 17:53
[2022-09-25] MEDS ORDERED: levETIRAcetam 500 MG/5 ML UDC PO STA (16:47)
[2022-09-25] MEDS ORDERED: levETIRAcetam INJ 1,000 MG in SODIUM CHLORIDE 0.9% 100ML 100 ML IV STA (16:54)
[2022-09-25] MEDS ORDERED: ONDANSETRON 4 MG/2 ML VIAL IVP STA (16:54)
[2022-09-25 17:58] VITALS: BP 128/81
== END 2022-09-25 17:53 | disposition home or self-care (01) ==
LOC: ED 15:48
DX: G40.909 Epilepsy, unspecified, not intractable, without status epilepticus (principal)
CPT/HCPCS: 36415; 80053; 80306; 80320; 81001; 81003; 83690; 85025; 87086; 93005; 96365; 96375; 99284

== ENCOUNTER 2022-10-26 19:48 | Emergency (ER) | payer MEDICAID ==
[2022-10-26 19:58] VITALS: BP 133/70
--- NOTE | 2022-10-26 20:21 | ED Physician Documentation ---
PD HPI UPPER EXT INJURY - Stated complaint Stated Complaint: RT FINGER LAC - Chief complaint Chief Complaint: Trauma Ext - History obtained from History obtained from: Patient - History of Present Illness Location: Right, Finger Where injury occurred: Home - Additonal information Additional information: Patient accidentally cut his right middle finger with an putting away a pocket knife. He sustained a small cut to the middle finger, no nail damage, no difficulty moving the finger, no change in sensation or range of motion. Tdap up to date. PD PAST MEDICAL HISTORY - Past Medical History Past Medical History: Yes Cardiovascular: None Respiratory: None Neuro: Seizure disorder Endocrine/Autoimmune: None GI: None : None HEENT: None Psych: None Musculoskeletal: None - Past Surgical History Past Surgical History: No - Present Medications Home Medications: Ambulatory Orders Medication Instructions Recorded Confirmed Levetiracetam [Keppra] 500 mg PO BID #60 tablet 08/23/21 07/10/22 Famotidine [Pepcid] 20 mg PO DAILY #20 tablet 05/30/22 07/10/22 LORazepam [Ativan] 1 mg PO BID PRN #12 tablet 05/30/22 07/10/22 Ondansetron Odt [Zofran] 4 mg TL Q6H PRN #10 tablet 05/30/22 07/10/22 Levetiracetam [Keppra] 1,250 mg PO BID 30 Days #150 tablet 09/25/22 - Allergies Allergies/Adverse Reactions: Allergies Allergy/AdvReac Type Severity Reaction Status Date / Time No Known Drug Allergies Allergy Verified 07/10/22 04:44 - Social History Does the pt smoke?: No Smoking Status: Never smoker Does the pt drink ETOH?: No Does the pt have substance abuse?: No - Immunizations Immunizations are current?: Yes - POLST Patient has POLST: No PD ED PE NORMAL - Vitals Vital signs reviewed: Yes - General General: Alert and oriented X 3, No acute distress, Well developed/nourished - Derm Derm: Normal color, Warm and dry, Other (1x0.3 cm lac tip of the rt middle finger) - Extremities Extremities: No deformity, Normal ROM s pain - Neuro Neuro: Alert and oriented X 3 Eye Opening: Spontaneous Motor: Obeys Commands Verbal: Oriented GCS Score: 15 Results - Vitals Vitals: Vital Signs - 24 hr 10/26/22 19:54 Temperature 36.8 C Heart Rate 94 Respiratory 16 Rate Blood Pressure 133/70 H O2 Saturation 98 Oxygen O2 Source Room air Procedures - Laceration (location) Finger right Length in cm: 1 Wound type: Irregular Neurovascular status: Sensory intact, Motor intact, Vascular intact Tendon involvement: Tendon intact Anesthesia: Lidocaine 1% Wound preparation: Hibiclens, Irrigated copiously NS Skin layer closure: Nylon, Size #-0 - enter number (4), Sutures - enter # (3) Other: Patient tolerated well, No complications, Neurovascular intact, Dressing applied, Tetanus UTD PD Medical Decision Making - ED course Complexity details: d/w patient ED course: Patient presented after he cut his right middle finger with a pocket knife as described in HPI. He has a small laceration 6 skin defect of the tip of the finger. As it was bleeding briskly prior to arrival, placed a tourniquet on the base of the finger, remove the dressing that had been previously applied and evaluated injury. It was irrigated thoroughly cleansed with Hibiclens. I did recommend suture closure given the risk of bleeding and patient consented. He was anesthetized locally with 1% plain lidocaine and 3 sutures were placed as described above. Patient tolerated well. Tourniquet was removed. He has normal range of motion and sensation and vascular intact. He was advised to keep wound clean and dry, do not soak, return if any signs of infection, sutures can be removed in 7 to 10 days. Departure - Departure Disposition: 01 Home, Self Care Clinical Impression: Finger laceration Qualifiers: Encounter type: initial encounter Finger: middle finger Damage to nail status: without damage Foreign body presence: without foreign body Laterality: right Qualified Code(s): S61.212A - Laceration without foreign body of right middle finger without damage to nail, initial encounter Condition: Good Instructions: ED Laceration Ext Sutr Stap Tape Comments: We placed 3 stitches. These can be removed in 7 to 10 days you can do this at your primary care office or walk-in clinic. Keep the area clean but otherwise dry, do not soak. Return if there are any signs of infection like redness, swelling, purulent drainage or other new concerns. Forms: PCP List
== END 2022-10-26 20:29 | disposition home or self-care (01) ==
LOC: ED 19:48
DX: S61.212A Laceration without foreign body of right middle finger without damage to nail, initial encounter (principal); W26.0XXA Contact with knife, initial encounter
CPT/HCPCS: 12001; 99281

== ENCOUNTER 2023-07-21 18:53 | Outpatient (CLI) | payer OTHER, MEDICAID | END 2023-07-21 23:59 | disposition critical access hospital (66) | LOC: EMS 18:53 | DX: R07.1 Chest pain on breathing (principal); M54.6 Pain in thoracic spine; R20.0 Anesthesia of skin; V49.50XA Passenger injured in collision with unspecified motor vehicles in traffic accident, initial encounter; Y92.414 Local residential or business street as the place of occurrence of the external cause | CPT/HCPCS: A0425; A0429 ==

== ENCOUNTER 2023-07-21 19:15 | Emergency (ER) | payer MEDICAID ==
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
[2023-07-21 19:33] VITALS: BP 127/67; O2SAT 99
[2023-07-21] MEDS: ONDANSETRON 4 MG/2 ML VIAL IVP STA (19:37)
[2023-07-21] MEDS: HYDROmorphone 1 MG/ML CARPUJECT IVP STA (19:38)
[2023-07-21 19:43] LABS: ALBUMIN 5.3 g/dL (3.2-5.5); ALKALINE PHOSPHATASE 63 IU/L (42-121); ALT ALANINE AMINOTRANSFERASE 14 IU/L (10-60); AST ASPARTATE AMINOTRANSFERASE 17 IU/L (10-42); BILIRUBIN,TOTAL 1.4 mg/dL (0.2-1.0); BUN - BLOOD UREA NITROGEN 16 mg/dL (6-20); CALCIUM 10.5 mg/dL (8.5-10.3); CARBON DIOXIDE - CO2 24 mmol/L (21-32); CHLORIDE 102 mmol/L (101-111); CREATININE 0.9 mg/dL (0.6-1.3); ETOH - ETHANOL < 10.0 mg/dL; GFR - MDRD 107 (>89); GLUCOSE 91 mg/dL (74-104); POTASSIUM 3.8 mmol/L (3.5-4.5); SODIUM 138 mmol/L (135-145); TOTAL PROTEIN 7.9 g/dL (6.4-8.9)
[2023-07-21 19:44] LABS: BASOPHILS # (AUTO) 0.1 10^3/uL (0.0-0.1); BASOPHILS % (AUTO) 0.6 %; EOSINOPHILS # (AUTO) 0.1 10^3/uL (0.0-0.7); EOSINOPHILS % (AUTO) 1.1 %; HCT - HEMATOCRIT 47.9 % (42.0-52.0); HGB - HEMOGLOBIN 16.1 g/dL (14.0-18.0); LYMPHOCYTES # (AUTO) 1.9 10^3/uL (1.5-3.5); LYMPHOCYTES % (AUTO) 17.5 %; MEAN CORPUSCULAR HEMOGLOBIN 28.2 pg (27.0-31.0); MEAN CORPUSCULAR HGB CONC 33.6 g/dL (32.0-36.0); MEAN CORPUSCULAR VOLUME 83.9 fL (80.0-94.0); MEAN PLATELET VOLUME 11.6 fL (7.4-11.4); MONOCYTES # (AUTO) 0.7 10^3/uL (0.0-1.0); MONOCYTES % (AUTO) 6.1 %; NEUTROPHILS % (AUTO) 73.6 %; PLT - PLATELET COUNT 230 10^3/uL (130-450); RED BLOOD COUNT 5.71 10^6/uL (4.70-6.10); RED CELL DISTRIBUTION WIDTH 12.6 % (12.0-15.0); WHITE BLOOD COUNT 10.8 x10^3/uL (4.8-10.8)
[2023-07-21 19:56] LABS: LIPASE < 10 U/L (11-82)
[2023-07-21] MEDS ORDERED: iohexoL-300 100 ML VIAL ONE (19:57)
[2023-07-21 20:02] LABS: INR 1.2 (0.8-1.2); PT - PROTHROMBIN TIME 13.2 secs (9.9-12.6)
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
[2023-07-21] MEDS: iohexoL-300 100 ML VIAL IVP ONE (21:27)
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
--- NOTE | 2023-07-21 21:32 | CT Report ---
PROCEDURE: Abdomen/Pelvis W INDICATIONS: Abdominal trauma, blunt CONTRAST: 100ml cliz853 TECHNIQUE: After the administration of intravenous contrast, a CT scan of the abdomen and pelvis was performed. Images were recorded and evaluated at appropriate window settings. Reformats: coronal and sagittal. F or radiation dose reduction, the following was used: automated exposure control, adjustment of mA and /or kV according to patient size. COMPARISON: CT chest 07/21/2023 FINDINGS: Image quality: Diagnostic. Lower chest: Unremarkable. Liver: No solid mass. Liver measures 17.8 cm. Gallbladder and biliary tree: Unremarkable. Spleen: Spleen measures 16.2 cm. Multiple foci of low-attenuation are present. The largest is present in the anterior spleen measuring approximately 1 cm. A posterior focus adjacent to the kidney is pre sent measuring 0.9 cm. Additional punctate foci are present within the spleen. There are are otherwis e no areas of abnormal enhancement. Splenic hilum appears unremarkable. No perispinal blastic fluid. Pancreas: No pancreatic ductal dilation. Adrenals: No adrenal nodule. Kidneys and ureters: No hydronephrosis. No renal cystic lesion which requires follow up. No solid mas s. Stomach, bowel and peritoneum: No bowel distension. No pathologic free fluid. Lymph nodes: No central or retroperitoneal adenopathy. Vessels: No infrarenal aortic aneurysm. PELVIS Reproductive organs: Unremarkable. Bladder: No abnormal wall thickening, accounting for underdistention. Pelvic lymph nodes: No pelvic adenopathy by size criteria. Bones: No aggressive osseous abnormality. Other: No significant ventral or inguinal hernia. IMPRESSION: Multiple low-attenuation foci within the spleen. No priors are available for comparison. Splenomegaly is also present. There are no areas of perisplenic fluid or adjacent osseous fractures. Overall appe arance is suggestive of simple cysts, complex cysts versus hemangiomas. Although there is a history o f trauma, the overall distribution and the lack of secondary signs of trauma such as perisplenic flui d and adjacent osseous fractures suggests these areas are not related to splenic lacerations or other splenic trauma. Recommend correlation of pain and short interval imaging follow-up is indicated. Reviewed by: Marion Cross MD on 07/21/2023 9:31 PM PDT Approved by: Marion Cross MD on 07/21/2023 9:31 PM PDT Station ID: [id number]
== END 2023-07-21 21:58 | disposition home or self-care (01) ==
LOC: EDUNIT# → ED 19:15
DX: S33.5XXA Sprain of ligaments of lumbar spine, initial encounter (principal); S13.9XXA Sprain of joints and ligaments of unspecified parts of neck, initial encounter; V43.62XA Car passenger injured in collision with other type car in traffic accident, initial encounter; Y92.488 Other paved roadways as the place of occurrence of the external cause; G40.909 Epilepsy, unspecified, not intractable, without status epilepticus; Z79.899 Other long term (current) drug therapy
CPT/HCPCS: 36415; 70450; 71045; 71260; 72125; 74177; 80053; 82077; 83690; 85025; 85610; 96374; 99283; 99284; J1170; Q9967

== ENCOUNTER 2023-09-15 21:48 | Outpatient (CLI) | payer MEDICAID | END 2023-09-15 23:59 | disposition critical access hospital (66) | LOC: EMS 21:48 | DX: R56.9 Unspecified convulsions (principal) | CPT/HCPCS: A0425; A0429; A0999 ==

== ENCOUNTER 2023-09-15 22:08 | Emergency (ER) | payer MEDICAID ==
[2023-09-15 22:44] LABS: BASOPHILS # (AUTO) 0.1 10^3/uL (0.0-0.1); BASOPHILS % (AUTO) 0.3 %; EOSINOPHILS # (AUTO) 0.1 10^3/uL (0.0-0.7); EOSINOPHILS % (AUTO) 0.5 %; HCT - HEMATOCRIT 39.4 % (42.0-52.0); HGB - HEMOGLOBIN 13.2 g/dL (14.0-18.0); LYMPHOCYTES # (AUTO) 1.6 10^3/uL (1.5-3.5); LYMPHOCYTES % (AUTO) 10.6 %; MEAN CORPUSCULAR HEMOGLOBIN 29.3 pg (27.0-31.0); MEAN CORPUSCULAR HGB CONC 33.5 g/dL (32.0-36.0); MEAN CORPUSCULAR VOLUME 87.4 fL (80.0-94.0); MEAN PLATELET VOLUME 11.3 fL (7.4-11.4); MONOCYTES # (AUTO) 1.1 10^3/uL (0.0-1.0); MONOCYTES % (AUTO) 7.3 %; NEUTROPHILS # (AUTO) 11.7 10^3/uL (1.5-6.6); PLT - PLATELET COUNT 175 10^3/uL (130-450); RED BLOOD COUNT 4.51 10^6/uL (4.70-6.10); RED CELL DISTRIBUTION WIDTH 12.6 % (12.0-15.0); WHITE BLOOD COUNT 14.9 x10^3/uL (4.8-10.8)
[2023-09-15 22:57] LABS: ALBUMIN/GLOBULIN RATIO 1.9 (1.0-2.2); ALKALINE PHOSPHATASE 56 IU/L (42-121); ALT ALANINE AMINOTRANSFERASE 12 IU/L (10-60); AST ASPARTATE AMINOTRANSFERASE 11 IU/L (10-42); BILIRUBIN,TOTAL 0.4 mg/dL (0.2-1.0); BUN - BLOOD UREA NITROGEN 22 mg/dL (6-20); CALCIUM 7.8 mg/dL (8.5-10.3); CARBON DIOXIDE - CO2 17 mmol/L (21-32); CHLORIDE 110 mmol/L (101-111); CREATININE 0.7 mg/dL (0.6-1.3); GFR - MDRD 142 (>89); GLUCOSE 152 mg/dL (74-104); POTASSIUM 2.7 mmol/L (3.5-4.5); SODIUM 139 mmol/L (135-145); TOTAL PROTEIN 6.1 g/dL (6.4-8.9)
[2023-09-15 22:58] LABS: LIPASE < 10 U/L (11-82)
[2023-09-15] MEDS: SODIUM CHLORIDE 0.9% 1,000 ML IV STA (23:21)
[2023-09-15] MEDS: POTASSIUM CHLOR 10 MEQ/100 ML 10 MEQ/100 ML BAG IV SCH (23:21)
[2023-09-15] MEDS: levETIRAcetam INJ 750 MG in SODIUM CHLORIDE 0.9% 100ML 100 ML IV STA (23:24)
[2023-09-15] MEDS: POTASSIUM BICARB 25 MEQ TABLET PO ONE (23:46)
--- NOTE | 2023-09-15 23:54 | ED Physician Documentation ---
PD HPI SEIZURE - Stated complaint Stated Complaint: SZ - Chief complaint Chief Complaint: Neuro - History obtained from History obtained from: Family (Fibarber), EMS - Additional information Additional information: Patient is a 45-[id number]-year-old male with a history of neurofibromatosis type I and seizure disorder presenting for evaluation of seizure episode this evening. History is provided by patient's fianc who has been with him. He has a states that throughout the day he has been less talkative which sometimes happens when he is back to have a seizure. When they were in the car he cried o ut and started having seizure activity. He did vomit on himself. She stopped the car, called 911 and turned patient onto his side. He is taking Keppra which jace states is 750 mg twice a day and has been compliant. He does use cannabis regularly. No recent illness. Review of Systems Unable to obtain: Uncooperative PD PAST MEDICAL HISTORY - Past Medical History Cardiovascular: None Respiratory: None Neuro: Seizure disorder Endocrine/Autoimmune: None GI: None : None HEENT: None Psych: None Musculoskeletal: None - Past Surgical History Past Surgical History: No - Present Medications Home Medications: Ambulatory Orders Medication Instructions Recorded Confirmed Famotidine [Pepcid] 20 mg PO DAILY #20 tablet 05/30/22 09/15/23 Levetiracetam [Keppra] 750 mg PO BID 09/15/23 09/15/23 Potassium Bicarbonate 25 meq PO DAILY #2 tablet 09/16/23 [K-Effervescent] - Allergies Allergies/Adverse Reactions: Allergies Allergy/AdvReac Type Severity Reaction Status Date / Time No Known Drug Allergies Allergy Verified 07/21/23 19:28 - Social History Does the pt smoke?: No Smoking Status: Never smoker Does the pt drink ETOH?: No Does the pt have substance abuse?: No - Immunizations Immunizations are current?: Yes - POLST Patient has POLST: No PD ED PE NORMAL - General General: Alert and oriented X 3, No acute distress, Well developed/nourished - HEENT HEENT: Atraumatic, PERRL, EOMI - Neck Neck: Supple, no meningeal sign - Cardiac Cardiac: RRR - Respiratory Respiratory: No respiratory distress, Clear bilaterally - Abdomen Abdomen: Normal bowel sounds, Soft, Non tender, Non distended - Derm Derm: Warm and dry - Neuro Neuro: Alert and oriented X 3, No motor deficit, Normal speech Results - Vitals Vitals: Vital Signs - 24 hr 09/15/23 09/16/23 09/16/23 22:12 00:45 01:42 Temperature 37.0 C Heart Rate 96 93 90 Respiratory 18 18 18 Rate Blood Pressure 122/74 131/77 H 128/70 O2 Saturation 95 100 100 Oxygen O2 Source Room air - Labs Labs: Laboratory Tests 09/15/23 09/15/23 22:40 22:40 WBC 14.9 H RBC 4.51 L Hgb 13.2 L Hct 39.4 L MCV 87.4 MCH 29.3 MCHC 33.5 RDW 12.6 Plt Count 175 MPV 11.3 Neut # (Auto) 11.7 H Lymph # (Auto) 1.6 Fountain # (Auto) 1.1 H Eos # (Auto) 0.1 Baso # (Auto) 0.1 Absolute Nucleated RBC 0.00 Nucleated RBC % 0.0 Sodium 139 Potassium 2.7 L Chloride 110 Carbon Dioxide 17 L Anion Gap 12.0 BUN 22 H Creatinine 0.7 Estimated GFR (MDRD) 142 Glucose 152 H Calcium 7.8 L Total Bilirubin 0.4 AST 11 ALT 12 Alkaline Phosphatase 56 Total Protein 6.1 L Albumin 4.0 Globulin 2.1 Albumin/Globulin Ratio 1.9 Lipase < 10 L PD Medical Decision Making - ED course Complexity details: reviewed results, re-evaluated patient, d/w patient, d/w family ED course: Patient is a 23-year-old with a known seizure disorder presenting for evaluation after a seizure this evening. Normal neuroexam and patient appears back at his baseline. Patient given evening dose of antiepileptic. CBC, chemistry reviewed. Potassium is low at 2.7. IV and p.o. replacement given. Patient is feeling better. Abdominal exam is benign. No further seizure episodes. Does not appear septic.Counseled on need for close follow-up with neurologist to discuss his medication dosing as he was supposed to be on a higher dose than he currently is taking last summer. Departure - Departure Disposition: 01 Home, Self Care Clinical Impression: Breakthrough seizure, Hypokalemia Condition: Stable Instructions: ED Potassium Deficiency, ED Seizure Recurrent Prescriptions: Potassium Bicarbonate [K-Effervescent] 25 meq PO DAILY #2 tablet Comments: You were evaluated after having a seizure. Your lab testing today shows that your potassium was quite low so you were given IV and oral potassium replacements. I additionally sent 2 potassium pills to [facility] for you to take daily for the next 2 days and would encourage you to Try to eat and drink properly. I would also recommend reaching out to your neurologist to discuss your Keppra dosing. You are currently taking 750 mg twice a day. However last year when we saw you in the emergency department we had increased the dose after talking to your neurologist to 1250 mg twice a day. Return to the ER with any new or worsening symptoms. Forms: PCP List Discharge Date/Time: 09/16/23 01:43
[2023-09-16 00:52] VITALS: O2SAT 100
[2023-09-16] MEDS: ACETAMINOPHEN 500 MG TABLET PO STA (01:21)
[2023-09-16 01:47] VITALS: BP 128/70
== END 2023-09-16 01:43 | disposition home or self-care (01) ==
LOC: EDUNIT# → ED 22:08
DX: R56.9 Unspecified convulsions (principal); E87.6 Hypokalemia
CPT/HCPCS: 36415; 80053; 83690; 85025; 96365; 96366; 99283; 99284; A9270

== ENCOUNTER 2023-11-16 16:01 | Emergency (ER) | payer MEDICAID ==
--- NOTE | 2023-11-16 16:26 | XRAY Report ---
PROCEDURE: Finger(s) RT INDICATIONS: Trauma TECHNIQUE: AP hand, 2 views of the third finger(s) acquired. COMPARISON: None. FINDINGS: Bones: No fractures or dislocations. No suspicious bony lesions. Soft tissues: No suspicious soft tissue calcifications or masses. IMPRESSION: No acute bony abnormality. Reviewed by: Lam Rice MD on 11/16/2023 4:25 PM PDT Approved by: Lam Rice MD on 11/16/2023 4:25 PM PDT Station ID: [id number]
[2023-11-16] MEDS ORDERED: BACITRACIN ZINC OINT 1 PACKET TOP STA (17:33)
--- NOTE | 2023-11-16 17:33 | ED Physician Documentation ---
PD HPI UPPER EXT INJURY - Stated complaint Stated Complaint: RT FINGERS INJ - Chief complaint Chief Complaint: Trauma Ext - Additonal information Additional information: 23-year-old male with no pertinent past medical history presents emergency department for right middle finger injury. Patient says that he was using a wench and accidentally hit the knuckle of his right middle finger on something he is worried about possible dislocation or fracture. There is a scant amount of bleeding is well-controlled he is up-to-date with his vaccines. PD PAST MEDICAL HISTORY - Past Medical History Past Medical History: Yes Cardiovascular: None Respiratory: None Neuro: Seizure disorder Endocrine/Autoimmune: None GI: GERD : None HEENT: None Psych: None Musculoskeletal: None - Past Surgical History Past Surgical History: No - Present Medications Home Medications: Ambulatory Orders Medication Instructions Recorded Confirmed Famotidine [Pepcid] 20 mg PO DAILY #20 tablet 05/30/22 09/15/23 Levetiracetam [Keppra] 750 mg PO BID 09/15/23 09/15/23 Potassium Bicarbonate 25 meq PO DAILY #2 tablet 09/16/23 [K-Effervescent] - Allergies Allergies/Adverse Reactions: Allergies Allergy/AdvReac Type Severity Reaction Status Date / Time No Known Drug Allergies Allergy Verified 11/16/23 16:07 - Social History Does the pt smoke?: No Smoking Status: Never smoker Does the pt drink ETOH?: No Does the pt have substance abuse?: No - Immunizations Immunizations are current?: Yes - POLST Patient has POLST: No PD ED PE NORMAL - Vitals Vital signs reviewed: Yes - General General: Alert and oriented X 3, No acute distress, Well developed/nourished - Derm Derm: Other (right middle finger abrasion, bleeding well controlled) - Extremities Extremities: Other (right middle finger: mild swelling over MIP joint, Full range of motion tenderness with palpation tenderness with flexion extension) Results - Vitals Vitals: Vital Signs - 24 hr 11/16/23 16:07 Temperature 36.5 C Heart Rate 83 Respiratory 16 Rate Blood Pressure 122/70 O2 Saturation 99 Oxygen O2 Source Room air - Rads (name of study) right finger Xray Relevant Findings:: Final report received, EMP independent interpretation of test, Other (No dislocation or acute bony fractures) PD Medical Decision Making - ED course ED course: 23-year-old male presents emergency department for right middle finger injury there is a superficial laceration/abrasion over the MIP bleeding is well- controlled he is up-to-date with his vaccines x-rays are complete for further evaluation of his right middle finger injury and there is no dislocation or fracture visualized. Patient was offered Tylenol ibuprofen but said that he would like to take his own at home. Bacitracin was applied over the wound after it was cleansed with normal saline he was taught how to manage this wound at home he is told when to follow-up with his primary care provider in [place] [facility] return precautions. All questions answered patient safe for discharge. Departure - Departure Disposition: Home, Self Care Clinical Impression: Contusion of right middle finger Qualifiers: Encounter type: initial encounter Damage to nail status: without damage Qualified Code(s): S60.031A - Contusion of right middle finger without damage to nail, initial encounter Instructions: ED Contusion Finger Comments: Thank you for trusting us with your care we have completed x-rays of your right finger and it is not fractured or dislocated. Please follow-up with your primary care provider if pain is gotten any worse or not improved after 7 to 10 days as sometimes there are fractures that do not show up initially on imaging. You can keep bacitracin over the wound to prevent it from getting infected and help with wound healing make sure that you keep flexing it and doing some range of motion to it so it does not get locked you can alternate between 1000 mg of Tylenol every 8 hours and 600 to 800 mg of ibuprofen every 6 hours. Forms: PCP List
[2023-11-16 18:15] VITALS: BP 121/70; O2SAT 98
== END 2023-11-16 18:07 | disposition home or self-care (01) ==
LOC: ED 16:01
DX: S60.031A Contusion of right middle finger without damage to nail, initial encounter (principal); W22.8XXA Striking against or struck by other objects, initial encounter; G40.909 Epilepsy, unspecified, not intractable, without status epilepticus
CPT/HCPCS: 73140; 99283; A9270

== ENCOUNTER 2023-11-23 15:57 | Emergency (ER) | payer MEDICAID ==
[2023-11-23 16:17] VITALS: O2SAT 99
--- NOTE | 2023-11-23 17:58 | ED Physician Documentation ---
History of Present Illness - Stated complaint Stated Complaint: RT MIDDLE FINGER PX - Chief complaint Chief Complaint: Trauma Ext - Additonal information Additional information: Patient is a 23 year old male presenting to the ED with right middle finger pain. Symptoms started about a week ago. He notes he was here a week ago and had x-rays done at that time that were negative. Patient was instructed to return for pain that persists or swelling persists. Patient instructed to return with any worsening pain or swelling. Alysa has not tkaen anything for his symptoms or used any ice to help with symptoms. Patient PD PAST MEDICAL HISTORY - Past Medical History Past Medical History: Yes Cardiovascular: None Respiratory: None Neuro: Seizure disorder Endocrine/Autoimmune: None GI: GERD : None HEENT: None Psych: None Musculoskeletal: None Derm: None - Past Surgical History Past Surgical History: No - Present Medications Home Medications: Ambulatory Orders Medication Instructions Recorded Confirmed Famotidine [Pepcid] 20 mg PO DAILY #20 tablet 05/30/22 09/15/23 Levetiracetam [Keppra] 750 mg PO BID 09/15/23 09/15/23 Potassium Bicarbonate 25 meq PO DAILY #2 tablet 09/16/23 [K-Effervescent] - Allergies Allergies/Adverse Reactions: Allergies Allergy/AdvReac Type Severity Reaction Status Date / Time No Known Drug Allergies Allergy Verified 11/23/23 16:09 - Social History Does the pt smoke?: No Smoking Status: Never smoker Does the pt drink ETOH?: Yes Does the pt have substance abuse?: Yes Substance Use and Type: Marijuana - Immunizations Immunizations are current?: Yes - POLST Patient has POLST: No PD ED PE NORMAL - Vitals Vital signs reviewed: Yes - General General: Alert and oriented X 3 - HEENT HEENT: Atraumatic - Cardiac Cardiac: RRR, No murmur, No rub, Strong equal pulses - Respiratory Respiratory: No respiratory distress - Extremities Extremities: Other (Mild swelling noted to right middle finger, mild decrease in flexion secondary to swelling but full strength intact and good capillary refill. No significant redness, bruising or discoloration.) - Neuro Neuro: Alert and oriented X 3 Eye Opening: Spontaneous Motor: Obeys Commands Results - Vitals Vitals: Oxygen O2 Source Room air - Rads (name of study) right hand x-ray Relevant Findings:: EMP independent interpretation of test PD Medical Decision Making - ED course ED course: Patient is a 23 year old male presenting to the ED with right middle finger swelling that has been going on for a week after he injured in one week ago and was seen here in the ED with negative imaging. Mild swelling noted to right middle finger, mild decrease in flexion secondary to swelling but full strength intact and good capillary refill. No significant redness, bruising or discoloration. Patient had repeat imaging done in triage. Images reviewed here showing no significant fracture. Patient updated on this finding. He was instructed to take tylenol and ibuprofen for pain and helping with swelling. Patient offered splint but he declined in the eD. He was given strict return precautions. patient agreeable with this plan. Departure - Departure Disposition: 01 Home, Self Care Clinical Impression: Sprain of right middle finger, Swelling of right middle finger Condition: Good Comments: You were seen here in the emergency department for your right middle finger pain and swelling. Your workup here in the emergency department showed no acute fracture you should take ibuprofen and Tylenol at home for pain and swelling. Use ice and take 800 mg of ibuprofen and 1000 mg of Tylenol to help with pain control. Return with any worsening pain discoloration to the finger or any other new or worsening symptoms. You can apply topical antibiotic to abrasion on posterior finger. Forms: PCP List Discharge Date/Time: 11/23/23 18:29
[2023-11-23 18:33] VITALS: BP 129/82
--- NOTE | 2023-11-23 20:17 | XRAY Report ---
PROCEDURE: Finger(s) RT INDICATIONS: Trauma TECHNIQUE: AP hand, 2 views of the third finger(s) acquired. COMPARISON: Right finger radiograph on November 16, 2023. FINDINGS: Bones: No fractures or dislocations. Joint spaces are maintained. Healed fracture deformity of the d istal radius. No suspicious bony lesions. Soft tissues: No suspicious soft tissue calcifications or masses. No radiopaque foreign body. IMPRESSION: No acute bony abnormality. Joint spaces are maintained. Please note the incorrect labeling of the third digit on AP view which could not be changed by the te chnologist. Reviewed by: Whitney Gonzalez MD on 11/23/2023 7:16 PM [place] Approved by: Whitney Gonzalez MD on 11/23/2023 7:16 PM [place] Station ID: [id number]
== END 2023-11-23 18:29 | disposition home or self-care (01) ==
LOC: ED 15:57
DX: S63.612A Unspecified sprain of right middle finger, initial encounter (principal); W23.0XXA Caught, crushed, jammed, or pinched between moving objects, initial encounter
CPT/HCPCS: 99283

== ENCOUNTER 2023-12-15 13:55 | Emergency (ER) | payer MEDICAID ==
[2023-12-15 14:15] VITALS: O2SAT 97
--- NOTE | 2023-12-15 14:37 | ED Physician Documentation ---
History of Present Illness - Stated complaint Stated Complaint: SZ - Chief complaint Chief Complaint: Neuro - History obtained from History obtained from: Patient - History of Present Illness Timing: Today Pain level max: 0 Pain level now: 0 - Additonal information Additional information: 23-year-old male with a history of neurofibromatosis type I and recurrent seizure disorder. History of hypokalemia as well. Is on Keppra 750 mg p.o. twice daily. He reportedly had a seizure today, not uncommon for him, last seizure was about 2 months ago. No fevers. No chills. Nothing makes it better or worse. Review of Systems Constitutional: denies: Fever, Chills Throat: denies: Sore throat Cardiac: denies: Chest pain / pressure, Palpitations Respiratory: denies: Cough GI: denies: Nausea, Vomiting, Diarrhea Skin: denies: Rash Musculoskeletal: denies: Neck pain, Back pain Neurologic: reports: Headache (mild, common after his seizures) PD PAST MEDICAL HISTORY - Past Medical History Cardiovascular: None Respiratory: None Neuro: Seizure disorder Endocrine/Autoimmune: None GI: GERD : None HEENT: None Psych: None Musculoskeletal: None Derm: None Other Past Medical History: neurofibromytosis type 1 - Past Surgical History Past Surgical History: No - Present Medications Home Medications: Ambulatory Orders Medication Instructions Recorded Confirmed Famotidine [Pepcid] 20 mg PO DAILY #20 tablet 05/30/22 09/15/23 Levetiracetam [Keppra] 750 mg PO BID 09/15/23 09/15/23 Potassium Bicarbonate 25 meq PO DAILY #2 tablet 09/16/23 [K-Effervescent] - Allergies Allergies/Adverse Reactions: Allergies Allergy/AdvReac Type Severity Reaction Status Date / Time No Known Drug Allergies Allergy Verified 11/23/23 16:09 - Social History Does the pt smoke?: No Smoking Status: Never smoker Does the pt drink ETOH?: Yes Does the pt have substance abuse?: Yes - Immunizations Immunizations are current?: Yes - POLST Patient has POLST: No PD ED PE NORMAL - Vitals Vital signs reviewed: Yes - General General: Alert and oriented X 3, No acute distress, Well developed/nourished - HEENT HEENT: PERRL, Moist mucous membranes - Neck Neck: Supple, no meningeal sign - Cardiac Cardiac: RRR, Strong equal pulses - Respiratory Respiratory: No respiratory distress, Clear bilaterally - Abdomen Abdomen: Soft, Non tender, Non distended - Derm Derm: Warm and dry - Extremities Extremities: No edema - Neuro Neuro: Alert and oriented X 3 - Psych Psych: Normal mood, Normal affect Results - Vitals Vitals: Vital Signs - 24 hr 12/15/23 12/15/23 14:09 15:34 Temperature 36.3 C L Heart Rate 86 68 Respiratory 18 16 Rate Blood Pressure 123/86 H 124/93 H O2 Saturation 97 97 Oxygen O2 Source Room air - Labs Labs: Laboratory Tests 12/15/23 12/15/23 14:41 14:41 WBC 12.6 H RBC 5.10 Hgb 15.0 Hct 43.4 MCV 85.1 MCH 29.4 MCHC 34.6 RDW 12.5 Plt Count 194 MPV 11.4 Neut # (Auto) 11.0 H Lymph # (Auto) 0.7 L [place] # (Auto) 0.8 Eos # (Auto) 0.0 Baso # (Auto) 0.0 Absolute Nucleated RBC 0.00 Nucleated RBC % 0.0 Sodium 136 Potassium 4.0 Chloride 102 Carbon Dioxide 29 Anion Gap 5.0 L BUN 19 Creatinine 0.7 Estimated GFR (MDRD) 142 Glucose 90 Calcium 9.6 Phosphorus 2.7 Magnesium 2.5 H PD Medical Decision Making - ED course Complexity details: reviewed results, re-evaluated patient, considered differential, d/w patient, d/w family ED course: Patient with his usual breakthrough seizure today. His neurologist had prescribed another antiseizure medication for him, but he wanted to talk to his neurologist about side effects before starting this. He has had issues with his potassium in the past, therefore labs were checked, no acute electrolyte abnormalities today. He is at his normal baseline with no further seizure activity. No indication for further workup at this time. Recommend he speak with his neurologist regarding his medications to decide what he should be taking. No acute injuries. Patient counseled regarding signs and symptoms for which I believe and urgent re-evaluation would be necessary. Patient with good understanding of and agreement to plan and is comfortable going home at this time This document was made in part using voice recognition software. While efforts are made to proofread this document, sound alike and grammatical errors may occur. Departure - Departure Disposition: 01 Home, Self Care Clinical Impression: Breakthrough seizure Condition: Good Instructions: ED Seizure Recurrent Follow-Up: your,doctor in 1 week [Other] Comments: Please contact your neurologist regarding your seizure medications. Please follow-up with them for further care. Please return if you worsen. Forms: PCP List Discharge Date/Time: 12/15/23 15:34
[2023-12-15 14:45] LABS: BASOPHILS % (AUTO) 0.2 %; EOSINOPHILS % (AUTO) 0.1 %; HCT - HEMATOCRIT 43.4 % (42.0-52.0); LYMPHOCYTES # (AUTO) 0.7 10^3/uL (1.5-3.5); LYMPHOCYTES % (AUTO) 5.4 %; MEAN CORPUSCULAR HEMOGLOBIN 29.4 pg (27.0-31.0); MEAN CORPUSCULAR HGB CONC 34.6 g/dL (32.0-36.0); MEAN CORPUSCULAR VOLUME 85.1 fL (80.0-94.0); MEAN PLATELET VOLUME 11.4 fL (7.4-11.4); MONOCYTES # (AUTO) 0.8 10^3/uL (0.0-1.0); MONOCYTES % (AUTO) 6.1 %; NEUTROPHILS % (AUTO) 87.4 %; PLT - PLATELET COUNT 194 10^3/uL (130-450); RED CELL DISTRIBUTION WIDTH 12.5 % (12.0-15.0); WHITE BLOOD COUNT 12.6 x10^3/uL (4.8-10.8)
[2023-12-15 14:59] LABS: CALCIUM 9.6 mg/dL (8.5-10.3); CREATININE 0.7 mg/dL (0.6-1.3); MAGNESIUM 2.5 mg/dL (1.7-2.3); PHOSPHORUS 2.7 mg/dL (2.5-5.0)
[2023-12-15 15:44] VITALS: BP 124/93
== END 2023-12-15 15:34 | disposition home or self-care (01) ==
LOC: EDUNIT# → ED 13:55
DX: G40.909 Epilepsy, unspecified, not intractable, without status epilepticus (principal); Z79.899 Other long term (current) drug therapy
CPT/HCPCS: 36415; 80048; 83735; 84100; 85025; 99283